=== PATIENT | male | born 1955 | race Caucasian/White ===

== ENCOUNTER 2017-08-12 08:48 | Emergency (ER) | END 2017-08-12 11:42 | disposition home or self-care (01) | DX: K62.5 Hemorrhage of anus and rectum (principal); F17.210 Nicotine dependence, cigarettes, uncomplicated; R40.2142 Coma scale, eyes open, spontaneous, at arrival to emergency department; R40.2252 Coma scale, best verbal response, oriented, at arrival to emergency department; R40.2362 Coma scale, best motor response, obeys commands, at arrival to emergency department; R10.13 Epigastric pain | CPT/HCPCS: 36415; 74176; 80053; 83690; 84484; 85025; 85610; 85730; 86850; 86900; 86901; 93005; 96374; 96375; J2270; J2405; Z7502 ==

== ENCOUNTER 2019-02-12 07:33 | Emergency (ER) | payer MEDICAID ==
[~2019-02-12] VITALS: Ht 167.6 cm; Wt 50.3 kg
[~2019-02-12 07:33] MED LIST: ADV25050 INH; FER325 PO; FLUC200T52 PO; HYDR-3980 PO; LEVO500T10 PO; LOSA25TA2 PO; METO10TA3 PO; NAPR-985 PO; ONDA4TAB14 PO; PANT40TA3 PO; PANT40TA4 PO; TIOT18CA INH; TRAM50TA2 PO
[2019-02-12 07:38] VITALS: Ht 167.6 cm; Wt 50.3 kg
[2019-02-12] MEDS ORDERED: ALBUTEROL 0.5% (NEB) 2.5 MG/0.5 ML AMP INH STA (07:57)
[2019-02-12] MEDS ORDERED: METHYLPREDNISOLONE 125 MG INJ IM STA (07:57)
[2019-02-12] MEDS ORDERED: HYDR12.58 PO (09:29)
[2019-02-12] MEDS ORDERED: FLOV220 INHALATION (09:29)
[2019-02-12] MEDS ORDERED: GABA100C14 PO (09:29)
[2019-02-12] MEDS ORDERED: ALBU8.5H8 INH ×2 (09:29→11:36)
[2019-02-12] MEDS ORDERED: CYCL10TA7 PO (09:29)
[2019-02-12] MEDS ORDERED: RANI150T5 PO (09:29)
[2019-02-12] MEDS ORDERED: CEFTRIAXONE 1 GM INJ IM ONE (10:16)
[2019-02-12] MEDS ORDERED: AZIT250T PO (11:36)
[2019-02-12] MEDS ORDERED: PRED20TA PO (11:36)
--- NOTE | 2019-02-12 11:41 | ERD ---
ER Documentation Chief Complaint Chief Complaint cough and sob x 2 days HPI This is a 63-year-old male who is here for cough. The patient says he had a green productive cough with wheezing. The patient says a history of asthma and is having asthma attack today. He has had no fever no chest pain no difficulty breathing but he is having audible wheezes. He has no GI symptoms no neurological complaints ROS All systems reviewed and are negative except as per history of present illness. Medications Home Meds Active Scripts Azithromycin* (Zithromax*) 250 Mg Tablet, 250 MG PO .TangelaPACK DIRECTED, #6 TAB TAKE 500 MG (2 TABS) THE FIRST DAY THEN 250 MG (1 TAB) DAYS 2-5 Prov:DANNA LAMAS DO 02/12/19 Prednisone* (Prednisone*) 20 Mg Tab, 60 MG PO DAILY for 5 Days, TAB Prov:DANNA LAMAS DO 02/12/19 Albuterol Sulfate* (Proair HFA*) 8.5 Gm Hfa.aer.ad, 2 PUFF INH Q4, #1 INHALER Prov:DANNA LAMAS DO 02/12/19 Reported Medications Albuterol Sulfate* (Proair HFA*) 8.5 Gm Hfa.aer.ad, 2 PUFF INH Q4H PRN for WHEEZING AND SOB, #1 INHALER 02/12/19 Fluticasone Propionate* (Flovent* HFA 220) 12 Gm Inha, 1 PUFF INHALATION BID, #1 INHALER 02/12/19 Ranitidine Hcl* (Ranitidine Hcl*) 150 Mg Tablet, 150 MG PO Q12, #60 TAB 02/12/19 Gabapentin* (Gabapentin*) 100 Mg Capsule, 100 MG PO TID, #90 CAP 02/12/19 Cyclobenzaprine Hcl* (Cyclobenzaprine Hcl*) 10 Mg Tablet, 10 MG PO Q8 PRN for MUSCLE SPASMS, #60 TAB 02/12/19 Hydrochlorothiazide* (Hydrochlorothiazide*) 12.5 Mg Tablet, 12.5 MG PO DAILY, #30 TAB 02/12/19 Discontinued Scripts Ondansetron (Ondansetron Odt) 4 Mg Tab.rapdis, 4 MG PO Q6H PRN for NAUSEA AND/OR VOMITING, #10 TAB Prov:NEFTALI MONSALVE MD 08/12/17 Hydrocodone/Acetaminophen ([place] 10-325 Tablet) 1 Each Tablet, 1 TAB PO Q6H PRN for PAIN, #7 TAB Prov:NEFTALI MONSALVE MD 08/12/17 Pantoprazole* (Protonix*) 40 Mg Tablet., 40 MG PO DAILY, #20 TAB Prov:NEFTALI MONSALEV MD 08/12/17 Naproxen* (Naprosyn*) 500 Mg Tablet, 500 MG PO BID PRN for PAIN AND/OR INFLAMMATION, #30 TAB Prov:LEANNA LUNAC 07/21/16 Tramadol HCl (Tramadol HCl) 50 Mg Tablet, 50 MG PO Q6 PRN for PAIN, #20 TAB Prov:LEANNA LUNAC 07/21/16 Fluconazole* (Fluconazole*) 200 Mg Tablet, 200 MG PO DAILY for 4 Days, TAB Prov:CHERI GARCÍA V. SENIOR SUPPORT ENGINEER 05/28/16 Metoclopramide Hcl* (Metoclopramide Hcl*) 10 Mg Tablet, 10 MG PO QID for 30 Days, TAB Prov:CHERI GARCÍA V. SENIOR SUPPORT ENGINEER 05/27/16 Levofloxacin* (Levofloxacin*) 500 Mg Tablet, 500 MG PO DAILY for 5 Days, TAB Prov:CHERI GARCÍA NP 05/27/16 Tiotropium [place]* (Spiriva*) 18 Mcg Cap.w.dev, 1 INH INH DAILY for 30 Days Prov:CHERI GARCÍA V. SENIOR SUPPORT ENGINEER 05/27/16 Salmeterol Xinaf/Fluticasone* (Advair*) 250-50 Diskus Inhaler, 1 INH INH BID for 30 Days Prov:CHERI GARCÍA V. SENIOR SUPPORT ENGINEER 05/27/16 Pantoprazole* (Pantoprazole*) 40 Mg Tablet.dr, 40 MG PO BID@06,18 for 30 Days Prov:CHERI GARCÍA V. SENIOR SUPPORT ENGINEER 05/27/16 Losartan Potassium* (Cozaar*) 25 Mg Tablet, 12.5 MG PO DAILY for 30 Days, TAB Prov:CHERI GARCÍA V. SENIOR SUPPORT ENGINEER 05/27/16 Ferrous Sulfate* (Ferrous Sulfate*) 325 Mg Tabec, 325 MG PO BID for 30 Days, TAB Prov:GARCÍACHERI BOJORQUEZ NP 05/27/16 Allergies Allergies: Coded Allergies: Penicillins (Verified Allergy, Unknown, 02/12/19) PMhx/Soc History of Surgery: Yes (HERNIA REPAIR ) Anesthesia Reaction: No Hx Neurological Disorder: No Hx Respiratory Disorders: No Hx Cardiac Disorders: No Hx Psychiatric Problems: No Hx Miscellaneous Medical Probl: No Hx Alcohol Use: Yes Hx Substance Use: No Hx Tobacco Use: Yes Smoking Status: Current every day smoker FmHx Family History: No coronary disease Physical Exam Vitals Vital Signs Date Temp Pulse Resp B/P (MAP) Pulse Ox O2 O2 Flow FiO2 Time Delivery Rate 02/12/19 84 18 100 Nasal 2.0 08:13 Cannula 02/12/19 Nasal 2.0 07:58 Cannula 02/12/19 97.8 100 20 168/111 95 07:38 (130) Physical Exam Const: Well-developed, well-nourished Head: Atraumatic, normocephalic Eyes: Normal Conjunctiva, PERRLA, EOMI, normal sclera, no nystagmus ENT: Normal External Ears, Nose and Mouth, moist mucus membranes. Neck: Full range of motion. No meningismus, no lymphadenopathy. Resp: Diffuse bilateral wheezes with rhonchi, but there is good air movement] Cardio: Regular rate and rhythm, no murmurs, S1 S2 present Abd: Soft, non tender x 4, non distended. Normal bowel sounds, no gu arding or rebound, no pulsitile abdominal masses or bruits Skin: No petechiae or rashes, no ecchymosis , no maculopapular rash Back: No midline or flank tenderness Ext: No cyanosis, or edema, FROM x 4, normal inspection, neurovascularly intact x 4 Neur: Awake and alert, STR 5/5 x 4, sensation intact x 4, no focal findings, cerebellum intact Psych: Normal Mood and Affect Results 24 hrs Current Medications Medications Dose Sig/Steven Start Time Status Last (Trade) Ordered Route PRN Stop Time Admin Dose Reason Admin Albuterol 10 mg ONCE STAT 02/12/19 DC 02/12/19 (Proventil INH 07:57 10:09 0.5% (Neb)) 02/12/19 07:58 125 mg ONCE STAT 02/12/19 DC 02/12/19 Methylprednis IM 07:57 08:09 olone Sodium 02/12/19 07:58 Succinate (Solu-Medrol) Ceftriaxone 1 gm ONCE ONCE 02/12/19 DC 02/12/19 Sodium IM 10:16 10:21 (Rocephin) 02/12/19 10:17 Procedures/[facility] MR #: [id number] DOS: 02/12/19 0757 Ordering MD: DANNA LAMAS DO Location: E/R Room/Bed: PROCEDURE: XR Chest. CLINICAL INDICATION: chest pain TECHNIQUE: Single frontal view of the chest was obtained COMPARISON: DR CHEST 02/12/2019; CR CHEST 05/27/2016 FINDINGS: The heart and mediastinum are within normal limits. There is a left upper lobe calcified granuloma. There is a patchy left lower lobe opacity. There is a moderate hiatal hernia. There is no pleural effusion or pneumothorax. RPTAT: AA IMPRESSION: Patchy left lower lobe opacity may represent a prominent epicardial fat pad versus an infiltrate. Moderate hiatal hernia. .Adonay Degroot MD, MD Date Time Electronically viewed and signed by .Adonay Degroot MD, on 02/12/2019 08:56 .S/ CC: DANNA LAMAS DO [id number] MR #: [id number] DOS: 02/12/19 1009 Ordering MD: DANNA LAMAS DO Location: E/R Room/Bed: PROCEDURE: XR Chest 2 views CLINICAL INDICATION: LLL infiltrate vs fat pad. TECHNIQUE: Frontal and lateral views of the chest COMPARISON: DR CHEST 02/12/2019; CT 08/12/2017; CR CHEST 05/27/2016; FINDINGS: The cardiomediastinal silhouette is unchanged. Atherosclerotic calcifications of the aorta. Opacity at the left lung base likely represents prominent epicardial fat, given findings of prior CT. No focal pulmonary consolidations. Stable calcified granuloma in the mid left lung. There is no evidence of significant pleural effusion or pneumothorax. No suspicious osseous lesions. IMPRESSION: No radiographic evidence of acute cardiopulmonary disease. Opacity at the left lung base likely represents prominent epicardial fat, given findings of prior CT. RPTAT: KK Kenyon Vargas, Physician Date Time Electronically viewed and signed by Kenyon Vargas, Physician on 02/12/2019 11:32 HtN/ CC: DANNA LAMAS DO [id number] Patient received albuterol continuous neb treatment with Solu-Medrol and after treatments he is breathing much better, his wheezing and rhonchi are nearly gone. Patient has no evidence of pneumonia on x-ray at all. Will discharge home with Z-Ethan prednisone and albuterol Departure Diagnosis: Primary Impression: Bronchitis Condition: Stable Patient Instructions: Bronchitis With Wheezing (Adult) DANNA LAMAS DO February 12, 2019 11:41
[2019-02-12 12:05] VITALS: BP 158/78; PULSE 78; RESP 18
== END 2019-02-12 12:15 | disposition home or self-care (01) ==
LOC: E/R 07:33
DX: J40 Bronchitis, not specified as acute or chronic (principal); F17.210 Nicotine dependence, cigarettes, uncomplicated
CPT/HCPCS: 71045; 71046; 94644; 96372; J0696; J2930; Z7502; Z7610